=== PATIENT | male | born 1970 | race Caucasian/White ===

== ENCOUNTER 2016-11-08 22:09 | Emergency (ER) | payer SELFPAY ==
[2016-11-08 22:15] VITALS: PULSE 87; BMI 29.2
--- NOTE | 2016-11-08 23:08 | PDOC ---
History of Present Illness <Shahram Nieto - Last Filed: 11/08/16 23:29> - History of Present Illness Initial Comments: 11/08/16 23:36 The patient is a 46 year old male, with no significant past medical history, who presents to the emergency department with fever (Tmax 103F), constant abdominal pain, and diarrhea since Thursday. He reports his pain is diffuse, constant, and mild. He states he has been experiencing multiple loose stools, nonbilious nonbloody, in an hour and reports his last BM was just prior to his ED arrival. He reports a small amount of blood in his stool this morning, but denies recurrence since. The patient states he has been diaphoretic at night before bed. He states he feels weak and reports losing about 5 lbs since the onset of symptoms. He denies chest pain, shortness of breath, headache and dizziness. He denies chills, nausea, vomit, and constipation. He denies dysuria, frequency, urgency and hematuria. Allergies: NKDA Social history: occasional alcohol consumption, denies illicit drug use <Esmer Singh - Last Filed: 11/08/16 23:42> - General Chief Complaint: Pain Stated Complaint: DIARRHEA Time Seen by Provider: 11/08/16 23:08 Past History - Past Medical History Other medical history: NONE - Psycho/Social/Smoking Cessation Hx Anxiety: No Suicidal Ideation: No Smoking History: Never smoked Have you smoked in the past 12 months: No Information on smoking cessation initiated: No Hx Alcohol Use: No Drug/Substance Use Hx: No Substance Use Type: None <Shahram Nieto - Last Filed: 11/08/16 23:29> <Esmer Singh - Last Filed: 11/08/16 23:42> - Past Medical History Allergies/Adverse Reactions: Allergies Allergy/AdvReac Type Severity Reaction Status Date / Time No Known Allergies Allergy Verified 11/08/16 23:03 Home Medications: Ambulatory Orders NK [No Known Home Medication] 11/08/16 Review of Systems - Review of Systems Constitutional: Yes: Chills, Fever, Loss of Appetite, Night Sweats, Unintentional Wgt. Loss Respiratory: No: Cough, Shortness of Breath Cardiac (ROS): Yes: Lightheadedness. No: Chest Pain ABD/GI: Yes: Diarrhea. No: Nausea, Vomiting : No: Dysuria, Hematuria Musculoskeletal: No: Muscle Pain All Other Systems: Reviewed and Negative <Shahram Nieto - Last Filed: 11/08/16 23:29> - Review of Systems Able to Perform ROS?: Yes <Esmer Singh - Last Filed: 11/08/16 23:42> *Physical Exam - Vital Signs Last Vital Signs Temp Pulse Resp BP Pulse Ox 98.2 F 87 18 138/86 100 11/08/16 22:12 11/08/16 22:12 11/08/16 22:12 11/08/16 22:12 11/08/16 22:49 <Shahram Nieto - Last Filed: 11/08/16 23:29> - Vital Signs Last Vital Signs Temp Pulse Resp BP Pulse Ox 98.2 F 87 18 138/86 100 11/08/16 22:12 11/08/16 22:12 11/08/16 22:12 11/08/16 22:12 11/08/16 22:49 - Physical Exam Comments: 11/08/16 23:36 GENERAL: The patient is awake, alert, and fully oriented, in no acute distress. HEAD: Normal with no signs of trauma. EYES: Pupils equal, round and reactive to light, extraocular movements intact, sclera anicteric, conjunctiva clear with no pallor. ENT: (+) dry mucous membranes. Ears normal, nares patent, oropharynx clear without exudates. NECK: Normal range of motion, supple without lymphadenopathy, JVD, or masses. LUNGS: Breath sounds equal, clear to auscultation bilaterally. No wheeze/ crackles. HEART: Regular rate and rhythm, normal S1 and S2 without murmur or rub. ABDOMEN: (+) diffuse discomfort, no focal guarding, slight rebound. Soft/ nontender/nondistended. BS wnl. No guarding or No palpable masses. No hepatosplenomegaly. EXTREMITIES: Normal range of motion, no edema. No clubbing or cyanosis. No cords, erythema, or tenderness. NEUROLOGICAL: Cranial nerves II through XII grossly intact. Normal speech, normal gait. PSYCH: Normal mood, normal affect. SKIN: Warm, Dry, normal turgor, no rashes or lesions noted. <Esmer Singh - Last Filed: 11/08/16 23:42> Medical Decision Making - Medical Decision Making 11/08/16 23:32 A portion of this note was documented by scribe services under my direction. I have reviewed the details of the note, within reason, and agree with the documentation with the following case summary and management plan written by me. 46-year-old male healthy with no past medical history presents with persistent abdominal pain with intractable diarrhea and subjective fever/chills for one week since returning from the [place]. No history of chronic GI issues, never had endoscopy or colonoscopy, no recent antibiotics though he did take one dose of some [id number] antibiotic this week for his diarrhea. Is feeling generally weak and lightheaded and dehydrated, so presents for evaluation. Afebrile here, vital signs are normal. Finally dry mucosa No jaundice or pallor Abdomen is soft and nondistended, diffuse discomfort to palpation without guarding. 46-year-old male with nonbloody diarrhea/abdominal pain/fevers and chills in the setting of recent travel. Most concerning for colitis/enterocolitis, less likely uncomplicated traveler's diarrhea. labs, cultures (blood and stool) ctap ivf, empiric iv abx reassess. Patient was signed out to the oncoming ED physician to follow-up the results, reassess the patient, and dispo accordingly. <Shahram Nieto - Last Filed: 11/08/16 23:29> *DC/Admit/Observation/Transfer <Shahram Nieto - Last Filed: 11/08/16 23:29> - Attestations Scribe Attestion: 11/08/16 23:41 Documentation prepared by Esmer Singh, acting as medical record clerk for Shahram Nieto MD, <Esmer Singh - Last Filed: 11/08/16 23:42> Diagnosis at time of Disposition: Enterocolitis
[2016-11-08] MEDS ORDERED: SODIUM CHLORIDE 1,000 ML IV ONE (23:26)
[2016-11-08] MEDS ORDERED: PIPERACILLIN/TAZOB 3.375 GM/50 ML PRE-DOCKED IVPB ONE (23:28)
[2016-11-08] MEDS ORDERED: PIPERACILLIN/TAZOB 3.375 GM 50 ML IVPB ONE (23:59)
--- NOTE | 2016-11-09 00:15 | PDOC ---
*Physical Exam - Vital Signs Last Vital Signs Temp Pulse Resp BP Pulse Ox 98.2 F 87 18 138/86 100 11/08/16 22:12 11/08/16 22:12 11/08/16 22:12 11/08/16 22:12 11/08/16 22:49 <Jennifer Kim - Last Filed: 11/09/16 04:23> - Vital Signs Last Vital Signs Temp Pulse Resp BP Pulse Ox 98.2 F 87 18 138/86 100 11/08/16 22:12 11/08/16 22:12 11/08/16 22:12 11/08/16 22:12 11/08/16 22:49 <Henry Bains - Last Filed: 11/09/16 04:37> ED Treatment Course - LABORATORY CBC & Chemistry Diagram: 11/09/16 00:25 11/09/16 00:25 - ADDITIONAL ORDERS Additional order review: Laboratory Results 11/09/16 11/09/16 11/09/16 00:25 00:25 00:25 Sodium 138 Potassium 3.5 Chloride 99 Carbon Dioxide 30 Anion Gap 9 BUN 9 Creatinine 0.9 Creat Clearance w eGFR > 60 Random Glucose 82 Lactic Acid 0.7 Calcium 8.8 Magnesium 2.3 Total Bilirubin 0.5 AST 20 ALT 21 Alkaline Phosphatase 71 Total Protein 6.5 Albumin 3.1 L Lipase 80 11/09/16 00:25 RBC 4.87 MCV 83.5 MCHC 34.2 RDW 13.7 MPV 9.3 Neutrophils % 62.1 Lymphocytes % 19.1 Monocytes % 17.0 H Eosinophils % 1.3 Basophils % 0.5 - Medications Given in the ED: ED Medications Discontinued Medications Generic Name Dose Route Start Last Admin Trade Name Freq PRN Reason Stop Dose Admin Sodium Chloride 1,000 mls @ 1,000 mls/hr 11/08/16 23:26 11/08/16 23:57 Normal Saline - IV 11/09/16 00:25 1,000 mls/hr ONCE ONE Administration Piperacillin Sod/Tazobactam Sod 3.375 gm 11/08/16 23:28 11/08/16 23:57 Zosyn 3.375gm Ivpb (Pre-Docked) IVPB 11/08/16 23:29 3.375 gm ONCE ONE Administration Protocol <Jennifer Kim - Last Filed: 11/09/16 04:23> - LABORATORY CBC & Chemistry Diagram: 11/09/16 00:25 11/09/16 00:25 - Medications Given in the ED: ED Medications Discontinued Medications Generic Name Dose Route Start Last Admin Trade Name Siddhartha PRN Reason Stop Dose Admin Piperacillin Sod/Tazobactam Sod 3.375 gm 11/08/16 23:28 11/08/16 23:57 Zosyn 3.375gm Ivpb (Pre-Docked) IVPB 11/08/16 23:29 3.375 gm ONCE ONE Administration Protocol <Henry Bains - Last Filed: 11/09/16 04:37> Medical Decision Making - Medical Decision Making 11/09/16 04:23 CT showed colitis, patient will be discharged with with cipro and flagyl <Jennifer Kim - Last Filed: 11/09/16 04:23> *DC/Admit/Observation/Transfer <Jennifer Kim - Last Filed: 11/09/16 04:23> - Discharge Dispostion Admit: No - Attestations Physician Attestion: 11/09/16 00:15 I, Dr. Henry Bains, attest that this document has been prepared under my direction and personally reviewed by me in its entirety. I further attest, that it accurately reflects all work, treatment, procedures and medical decision -making performed by me. <Henry Bains - Last Filed: 11/09/16 04:37> Diagnosis at time of Disposition: Enterocolitis, Colitis - Discharge Dispostion Disposition: HOME Condition at time of disposition: Good - Prescriptions Prescriptions: Ciprofloxacin HCl [Cipro] 500 mg PO BID #20 tablet Metronidazole [Flagyl -] 500 mg PO TID #30 tablet Ondansetron [Zofran *Odt*] 8 mg SL TID #30 od.tablet - Referrals Referrals: Abelardo Lobato MD [Staff Physician] - - Patient Instructions Printed Discharge Instructions: DI for Colitis Additional Instructions: Steven.... We saw Colitis on the CT Scan. Cipro and Flagyl are both antibiotics and you need to be on them for ten days. Eat a lot of yogurt. Drink lots of water. Follow up with Dr. Lobato this week. Return to us if any problems. Best- Dr. Henry Bains
[2016-11-09 00:59] LABS: BASOPHIL 0.5 % (0-2.0); EOSINOPHIL 1.3 % (0-4.5); MCH 28.6 pg (25.7-33.7); MCHC 34.2 g/dl (32.0-35.9); MEAN CELL VOLUME 83.5 fl (80-96); MEAN PLT VOLUME 9.3 fl (7.5-11.1); NEUTROPHILS 62.1 % (42.8-82.8); PLATELET COUNT 217 K/MM3 (134-434); RDW 13.7 % (11.9-15.9); WHITE BLOOD COUNT 8.5 K/mm3 (4.0-10.0)
[2016-11-09 01:11] LABS: ALBUMIN 3.1 g/dl (3.4-5.0); ANION GAP 9 (8-16); BILIRUBIN,TOTAL 0.5 mg/dL (0.2-1.0); CALCIUM 8.8 mg/dL (8.5-10.1); CO2 30 mmol/L (21-32); CREATININE 0.9 mg/dL (0.7-1.3); GLUCOSE,RANDOM 82 mg/dL (74-106); SGOT/AST 20 U/L (15-37); SGPT/ALT 21 U/L (12-78); TOT PROT 6.5 g/dl (6.4-8.2)
[2016-11-09 01:12] LABS: ALK PHOS 71 U/L (45-117)
[2016-11-09] MEDS ORDERED: metroNIDAZOLE 500 MG TABLET PO ONE (04:19)
[2016-11-09] MEDS: CIPROFLOXACIN 500 MG TABLET (RESTRICTED TO ID) PO ONE ×2 (04:47→05:03)
[2016-11-09] MEDS ORDERED: metroNIDAZOLE 250 MG TABLET ONE (04:54)
[2016-11-09 04:56] LABS: URINE APPEARANCE CLEAR; URINE BILIRUBIN NEGATIVE (NEGATIVE); URINE BLOOD NEGATIVE (NEGATIVE); URINE COLOR STRAW; URINE GLUCOSE (UA) NEGATIVE (NEGATIVE); URINE KETONE TRACE (NEGATIVE); URINE LEUK ESTERASE NEGATIVE (NEGATIVE); URINE NITRITE NEGATIVE (NEGATIVE); URINE PROTEIN NEGATIVE (NEGATIVE); URINE UROBILINOGEN NEGATIVE E.U./dl (0.2-1.0)
[2016-11-09 05:26] VITALS: BP 136/84; TEMP 98
[2016-11-12 16:26] LABS: PARASITES CONCENTRATED SMEAR Final report (.)
== END 2016-11-09 05:26 | disposition home or self-care (01) ==
LOC: JER 22:09
PROC: 3E0337Z Introduction of Electrolytic and Water Balance Substance into Peripheral Vein, Percutaneous Approach (ICD-10-PCS; principal; 2016-11-08)
PROC: 3E03329 Introduction of Other Anti-infective into Peripheral Vein, Percutaneous Approach (ICD-10-PCS; 2016-11-08)
DX: K52.9 Noninfective gastroenteritis and colitis, unspecified (principal)
CPT/HCPCS: 36415; 74177-TC; 80053; 81003; 83605; 83690; 83735; 85025; 87040; 87045; 87046; 87177; 87205; 87209; 87324; 87449; 99283-25